=== PATIENT | male | born 1970 | race Caucasian/White ===

== ENCOUNTER 2018-08-20 06:28 | Inpatient (IN) | payer BC ==
--- NOTE | 2018-08-01 09:04 | PREOP ---
DATE OF ADMISSION: 08/20/2018 DATE OF DICTATION: 07/24/2018 REASON FOR ADMISSION: Chronically incarcerated complex ventral incisional hernia, abdominal pain. BRIEF HISTORY: This is a 48-year-old gentleman who underwent a laparoscopic cholecystectomy in 2004. Following that operation, he was told by his that he had a lump at the site of the surgery. Over this time course, patient feels the lump has gotten larger. However, he now has pain in the area that is limiting his physical activities. He has had no nausea, no change in bowel habits. PAST MEDICAL HISTORY: Significant for kidney/bladder issues. He has no history of coronary artery disease, hypertension, or diabetes. PAST SURGICAL HISTORY: As mentioned above. ALLERGIES: None. MEDICATIONS: None. SOCIAL HISTORY: Patient does not smoke or drink. PHYSICAL EXAMINATION: Abdomen: Soft, nontender, nondistended. He has an upper midline diastasis from xiphoid to umbilicus. In the right upper quadrant just off the midline, there is a soft tissue mass the size of a little bit bigger than a golf ball. The mass is chronically incarcerated and closed to the ribcage. IMPRESSION/PLAN: Chronically incarcerated ventral incisional hernia. Given the location of this hernia and his upper midline diastasis, I suspect the repair will not be simple and may require a bilateral component separation of some sort to allow an extraperitoneal repair. At this point, the patient will be scheduled for an open repair of complex chronically incarcerated ventral incisional hernia and component separation as needed. The indications, alternatives, and complications are discussed. Questions are answered. We will plan to obtain written consent the day of surgery. SANTOS JESSICA M.D. [id number]
[2018-08-18 13:47] VITALS: BMI 32.1
[2018-08-20] MEDS ORDERED: TAMSULOSIN HCL 0.4 MG CAP ONE (06:59)
[2018-08-20] MEDS ORDERED: ceFAZolin SODIUM 1 GM VIAL ONE (06:59)
[2018-08-20] MEDS ORDERED: TAMSULOSIN HCL 0.4 MG CAP PO ONE (07:09)
[2018-08-20] MEDS ORDERED: fentaNYL CITRATE 250 MCG/5 ML VIAL ONE (07:53)
[2018-08-20] MEDS ORDERED: ROCURONIUM BROMIDE 50 MG/5 ML VIAL ONE ×2 (07:53→08:24)
[2018-08-20] MEDS ORDERED: PROPOFOL 20 ML ONE (07:53)
[2018-08-20] MEDS ORDERED: MIDAZOLAM HCL 2 MG/2 ML SINGLE DOSE VIAL ONE (07:53)
[2018-08-20] MEDS ORDERED: DEXAMETHASONE SOD PHOSPHATE/PF 10 MG/ML SDV ONE (07:56)
[2018-08-20] MEDS ORDERED: BUPIVACAINE HCL/PF 0.5% (5MG/ML) 10 ML VIAL ONE (07:56)
[2018-08-20] MEDS ORDERED: ceFAZolin SODIUM 1 GM VIAL IVPB ONE (08:05)
[2018-08-20] MEDS ORDERED: BUPIVACAINE HCL/PF (5 MG/ML) 30 ML VIAL IJ ONE (08:50)
[2018-08-20] MEDS ORDERED: DEXAMETHASONE SOD PHOSPHATE 4 MG/1 ML VIAL ONE (08:58)
[2018-08-20] MEDS ORDERED: LIDOCAINE HCL 2% JELLY (5 ML/TUBE) ONE (08:58)
[2018-08-20] MEDS ORDERED: LIDOCAINE HCL/PF 2% SDV 5ML VIAL ONE (08:58)
[2018-08-20] MEDS ORDERED: ONDANSETRON 4 MG/2 ML VIAL ONE (08:58)
[2018-08-20] MEDS ORDERED: GLYCOPYRROLATE 0.2 MG/1 ML VIAL ONE (09:01)
[2018-08-20] MEDS ORDERED: NEOSTIGMINE METHYLSULFATE 0.5 MG/ML - 10 ML MDV ONE (09:01)
[2018-08-20] MEDS ORDERED: oxyCODONE HCL 5 MG TABLET PO PRN (09:34)
[2018-08-20] MEDS ORDERED: ONDANSETRON 4 MG/2 ML VIAL IVPUSH PRN ×2 (09:34→09:47)
[2018-08-20] MEDS ORDERED: PROMETHAZINE HCL 25 MG/1 ML VIAL IVPUSH PRN (09:34)
[2018-08-20] MEDS ORDERED: LACTATED RINGERS SOLUTION 1,000 ML IV SCH (09:45)
[2018-08-20] MEDS ORDERED: ACETAMINOPHEN 325 MG TABLET (FP) PO PRN (09:47)
[2018-08-20] MEDS ORDERED: D5-1/2NS+20 MEQ KCL - 20 MEQ/1,000 ML INFUS.BAG IV SCH (10:00)
--- NOTE | 2018-08-20 10:42 | OP ---
DATE OF OPERATION: 08/20/2018 ADDENDUM PREOPERATIVE DIAGNOSIS: Chronically incarcerated complex incisional hernia. POSTOPERATIVE DIAGNOSIS: Chronically incarcerated complex incisional hernia. PROCEDURE: Open bilateral component separation, repair of chronically incarcerated incisional hernia with mesh, partial omentectomy, bilateral rectus sheath block. SURGEON: Josh Puente MD CROP OR GRAIN FARMER: Paulino Jha DO ANESTHESIA: Tamar Zamora MD ESTIMATED BLOOD LOSS: Minimal. SPECIMENS: Portion of omentum. Israel DELAROSA [id number]
--- NOTE | 2018-08-20 11:09 | OP ---
DATE OF OPERATION: 08/20/2018 PREOPERATIVE DIAGNOSIS: Chronically incarcerated complex incisional hernia. POSTOPERATIVE DIAGNOSIS: Chronically incarcerated complex incisional hernia. PROCEDURE: Open bilateral component separation, repair of chronically incarcerated incisional hernia with mesh, partial omentectomy. Bilateral rectus sheath block (this was performed by the assistant librarian surgeon). SURGEON: Josh Puente MD DRYLAND FARMER: Paulino Jha DO ANESTHESIA: Tamar Zamora MD (general). ESTIMATED BLOOD LOSS: Minimal. SPECIMEN: Portion of omentum. INDICATIONS/PROCEDURE: This is a 48-year-old patient who underwent a previous laparoscopic procedure, and now, has a chronically incarcerated large incisional hernia at one of the larger port sites. Patient states the hernia has gotten significantly larger over the years, and now, he has discomfort in the area which had this repaired. Patient was identified and appropriately positioned on the operating table. After placement of general anesthesia, the abdomen was prepped and draped in the usual sterile fashion with ChloraPrep. An incision underlying the previous scar was made and extended as needed and deepened in the subcutaneous tissue. Once this was accomplished, there was an obvious incarcerated hernia encountered. The hernia was dissected free from the soft tissue down to the level of the fascia. It was then subsequently isolated circumferentially at the fascial level. The fascia around the defect was markedly frayed, and therefore, a larger repair had to be performed with a component separation. The muscle layers subsequently were then on the patients right (the posterior sheath ), were from the rectus muscle with blunt dissection and to allow closure of the posterior sheath to be moved medially. The portion of the transversus abdominis muscle was from the rectus sharply. This myofascial separation allowed the posterior sheath to be moved over medially. Due to the frayed tissue in the midline, had to then go beyond the midline on the patients left side to do a similar approach. Again, the posterior sheath was bluntly out towards the junction of the transversus. The transversus was from the rectus with sharp dissection. The myofascial separation allowed me to place a larger piece of mesh. Once the space was developed, the posterior sheath was reinforced and closed with a running 3-0 Vicryl suture. Prior to closure of this sheath, a large portion of the hernia was incarcerated into this, and therefore, the sac was opened. It contained fat. The fat was excised that was consistent with a portion of the omentum. The sac then was oversewn with a 3-0 Vicryl suture. A large piece of mesh was used for the operative repair (Bard). It was placed into the retrorectus space and then anchored with a multitude of interrupted inverted. The mesh now irrigated. The operative field noted to be hemostatic. The rectus sheath, on both sides, was subsequently injected under direct vision with a total of 40 mL of 0.5% Marcaine with 4 mg of Decadron (this injection was performed by the assistant librarian surgeon). The fascia overlying the mesh was reapproximated with interrupted inverted 0 PDS sutures, and the skin closed with darinel. At the conclusion of this case, sponge and instrument counts were correct. ATTESTATION: Brief operative note handwritten on the preprinted form. [facility] queried prior to giving any narcotics. Israel DELAROSA [id number] MTDDanilo
[2018-08-20] MEDS ORDERED: ACETAMINOPHEN INJECTION 100 ML IVPB ONE (13:17)
[2018-08-20] MEDS ORDERED: BENZOCAINE/MENTH/CETYLPYRD CL 1 EACH LOZENGE MM PRN (13:23)
[2018-08-20] MEDS ORDERED: ACETAMINOPHEN 1000 MG/100 ML VIAL (NON FORMULARY) IVPB ONE (13:24)
[2018-08-20] MEDS: morphine SULFATE 4 MG/ML VIAL IVPB PRN ×2 (20:39→23:54)
[2018-08-21] MEDS: oxyCODONE HCL 5 MG TABLET PO PRN ×3 (02:21→10:30)
[2018-08-21 05:46] VITALS: BP 123/74; PULSE 81; TEMP 98.3
--- NOTE | 2018-08-21 08:30 | DS ---
DATE OF ADMISSION: 08/20/2018 DATE OF DISCHARGE: 08/21/2018 ADMITTING DIAGNOSIS: Complex incisional hernia. DISCHARGE DIAGNOSIS: Complex incisional hernia. BRIEF HISTORY: This is a 48-year-old male who presented to [facility] for surgical management of a complex incisional hernia. He underwent repair of this hernia utilizing mesh as well as component separation and myofascial release. Please reference Dr. Josh Puente's operative note from August 20 for further details. He is being discharged home today, August 21, tolerating regular diet, ambulating, and voiding. He will resume his usual home medication of Zyrtec. He has new prescription for Percocet which he will take as needed for pain. He is okay to shower. He will not lift anything more than 20 pounds. He will follow with Dr. Puente in approximately 2 weeks' time to be evaluated for staple removal. At the time of his discharge he is ambulating, voiding, and tolerating diet without fever. DO MARY OLEARY/[id number]
[2018-08-21] MEDS: LORATADINE 10 MG TABLET PO SCH ×2 (10:19→10:20)
[2018-08-21] MEDS: ENOXAPARIN NA (PORCINE) 40 MG/0.4 ML DISP.SYRIN SQ SCH (10:20)
[2018-08-21] MEDS: PANTOPRAZOLE SODIUM 40 MG VIAL IVPUSH SCH (10:20)
--- NOTE | 2018-08-21 15:15 | PN ---
Progress Note (short form) - Note Progress Note: Anesthesia post op note, POD#1, S/P ventral hernia repair.VSS. No post anesthesia complications reported. Pat discharged to home.
--- NOTE | 2018-08-22 14:26 | PATH ---
Surgical Pathology Report Patient Name: ANGEL KHAN [facility]. Rec. #: [id number] /Age/Gender: 1970 (Age: 48) / M Account: [id number] Location: [address] [place] [address]/[facility] Taken: 08/20/2018 Received: 08/20/2018 Reported: 08/21/2018 Physicians: Josh Puente Specimen(s) Received OMENTUM Clinical History Complex ventral hernia Final Diagnosis OMENTUM, PORTION, REPAIR OF COMPLEX VENTRAL HERNIA: BENIGN OMENTAL ADIPOSE TISSUE. Electronically Signed Ashley Archibald M.D. Gross Description Received in formalin labeled "portion of omentum," is a 5.5 x 4.8 x 1.4 cm portion of yellow, lobulated adipose tissue. Sectioning reveals homogeneous yellow, smooth fat. Rubber Press Tender sections are submitted in one cassette. /08/20/201808/20/2018
== END 2018-08-21 14:35 | disposition home or self-care (01) | DRG 355 ==
LOC: JASU-SURG 06:28 → JSAMEDAYSX 09:47 → J6S 18:43
PROVIDERS: ADMIT Surgery; ATTEND Surgery
PROC: 0DBU0ZZ Excision of Omentum, Open Approach (ICD-10-PCS; 2018-08-20)
PROC: 0WUF0JZ Supplement Abdominal Wall with Synthetic Substitute, Open Approach (ICD-10-PCS; principal; 2018-08-20 10:00)
DX: K43.0 Incisional hernia with obstruction, without gangrene (principal)
CPT/HCPCS: 88302-TC; 94760; J0131

== ENCOUNTER 2018-12-04 08:28 | Day surgery (SDC) | payer BC ==
[2018-12-01 14:59] VITALS: BMI 30.7
[2018-12-04] MEDS ORDERED: PROPOFOL 20 ML ONE ×2 (09:08)
[2018-12-04] MEDS ORDERED: LIDOCAINE HCL/PF 2% SDV 5ML VIAL ONE (09:08)
[2018-12-04 11:17] VITALS: TEMP 98
[2018-12-04 11:28] VITALS: BP 118/84; PULSE 68
--- NOTE | 2018-12-05 17:12 | PATH ---
Surgical Pathology Report Patient Name: ANGEL KHAN [facility]. Rec. #: [id number] /Age/Gender: 1970 (Age: 48) / M Account: [id number] Location: [facility] Taken: 12/04/2018 Received: 12/04/2018 Reported: 12/05/2018 Physicians: Rubio Howard M.D. Specimen(s) Received A: DUODENUM BIOPSY B: ANTRUM BIOPSY C: DISTAL SYGMODI POLYP Clinical History GERD, rule out colon cancer Postoperative diagnosis: Gastritis Final Diagnosis A. DUODENUM, BIOPSY: DUODENAL MUCOSA WITH NO PATHOLOGIC FINDINGS. B. ANTRUM, BIOPSY: MODERATE CHRONIC ACTIVE GASTRITIS. IMMUNOSTAIN SHOWS NUMEROUS H PYLORI ORGANISMS. C. DISTAL SIGMOID, BIOPSY: HYPERPLASTIC POLYP. Electronically Signed Kaitlyn Winters M.D. Gross Description A. Received in formalin, labeled "duodenum biopsy" are 2 richard, irregular portions of soft tissue averaging 0.3 cm. in greatest dimension. The specimens are submitted in toto in one cassette. B. Received in formalin, labeled "antrum biopsy" are 2 richard, irregular portions of soft tissue measuring 0.3 and 0.4 cm. in greatest dimension. The specimens are submitted in toto in one cassette. C. Received in formalin, labeled "distal sigmoid biopsy" is a richard, irregular portion of soft tissue measuring 0.2 cm. in greatest dimension. The specimen is submitted in toto in one cassette. 12/04/2018 saudi12/04/2018
== END 2018-12-04 10:35 | disposition home or self-care (01) ==
LOC: FASU-ENDO 08:28
PROVIDERS: ATTEND Internal Medicine Gastroenterology
PROC: 0DBN8ZX Excision of Sigmoid Colon, Via Natural or Artificial Opening Endoscopic, Diagnostic (ICD-10-PCS; principal; 2018-12-04 09:24)
DX: Z12.11 Encounter for screening for malignant neoplasm of colon (principal); K29.50 Unspecified chronic gastritis without bleeding; B96.81 Helicobacter pylori [H. pylori] as the cause of diseases classified elsewhere; K63.5 Polyp of colon
CPT/HCPCS: 88305-TC; 88342-TC

== ENCOUNTER 2021-09-07 10:05 | Emergency (ER) | payer BC ==
[2021-09-07 10:20] VITALS: BP 143/99; PULSE 75; TEMP 97.9; BMI 31.4
[2021-09-07] MEDS ORDERED: NAPROXEN 500 MG TABLET PO ONE (10:27)
[2021-09-07] MEDS ORDERED: NAPROXEN 500 MG TABLET ONE (10:40)
== END 2021-09-07 13:02 | disposition home or self-care (01) ==
LOC: FER 10:05
DX: S86.911A Strain of unspecified muscle(s) and tendon(s) at lower leg level, right leg, initial encounter (principal); X50.0XXA Overexertion from strenuous movement or load, initial encounter
CPT/HCPCS: 93971-TC; 99284-25